=== PATIENT | male | born 1955 | race Hispanic/Latino ===

== ENCOUNTER 2020-07-29 15:11 | Inpatient (IN) | payer OTHER ==
[2020-07-30 00:04] VITALS: BMI 30.7
[2020-07-30] MEDS ORDERED: Nitroglycerin 0.4 MG TAB (25 Tab Bottle) SL PRN (02:37)
[2020-07-30] MEDS ORDERED: Atorvastatin Calcium 40 MG TAB PO SCH (02:45)
[2020-07-30] MEDS ORDERED: Acetaminophen 325 MG TAB PO PRN (02:48)
[2020-07-30] MEDS ORDERED: Ondansetron PF 4 MG/2 ML Vial IVP PRN (02:48)
[2020-07-30] MEDS ORDERED: Ondansetron ODT 4 MG TAB PO PRN (02:48)
[2020-07-30 05:15] LABS: Cardiac Risk 4.8 (Less than 4.5); Magnesium 2.2 mg/dL (1.6-2.6)
[2020-07-30 05:31] LABS: Troponin I 0.522 ng/mL (< 0.028)
[2020-07-30] MEDS ORDERED: Enoxaparin Sodium 80 MG/0.8 ML SYRINGE SC SCH (06:00)
[2020-07-30 08:01] LABS: Troponin I 0.499 ng/mL (< 0.028)
[2020-07-30] MEDS: Aspirin 325 MG TAB PO SCH (08:57)
[2020-07-30] MEDS ORDERED: Aspirin Chewable 81 MG TAB PO SCH (09:00)
[2020-07-30] MEDS ORDERED: Regadenoson 0.4 MG/5 ML SYRINGE ONE (11:28)
[2020-07-30] MEDS ORDERED: Communication Order-Pharmacy FS SCH (14:30)
[2020-07-30] MEDS ORDERED: Atorvastatin Calcium 20 MG TAB PO SCH (21:00)
[2020-07-30] MEDS ORDERED: Latanoprost 0.005% Ophth Soln 2.5 ml Bottle EA EYE SCH (21:00)
[2020-07-31 04:51] LABS: #Basophils 0.1 thou/uL (0.0-0.2); #Eosinphils 0.1 thou/uL (0.0-0.7); #Lymphocytes 2.7 thou/uL (1.20-3.40); #Monocytes 0.5 thou/uL (0.11-0.59); #Neutrophils 3.8 thou/uL (1.40-6.50); %Basophils 0.8 % (0.0-1.0); %Eosinophils 1.9 % (0.0-10.0); %Lymphocytes 37.4 % (21.0-51.0); %Monocytes 7.2 % (0.0-10.0); %Neutrophils 52.8 % (42.0-75.0); Hemoglobin 13.6 g/dL (14.0-18.0); Mean Corpuscular HGB CONC 32.8 g/dL (32.0-36.0); Mean Corpuscular Hemoglobin 29.7 pg (27.0-31.0); Mean Corpuscular Volume 90.7 fL (78.0-98.0); Mean Platelet Volume 8.5 fL (7.4-10.4); Platelet Count 183 thou/uL (130-400); RBC Distribution Width 11.8 % (11.5-14.5); Red Blood Cell (RBC) Count 4.58 mill/uL (4.70-6.10); White Blood Cell (WBC) Count 7.2 thou/uL (4.8-10.8)
[2020-07-31 05:09] LABS: Anion Gap 11 mmol/L (10-20); BUN (Urea Nitrogen) 17 mg/dL (8.4-25.7); Calc. Creatinine Clearance 102 mL/min (70-130); Calcium 8.6 mg/dL (7.8-10.44); Carbon Dioxide 28 mmol/L (23-31); Chloride 105 mmol/L (98-107); Glucose 99 mg/dL (80-115); Potassium 4.3 mmol/L (3.5-5.1); Sodium 140 mmol/L (136-145)
[2020-07-31] MEDS: Aspirin 325 MG TAB PO SCH (05:18)
[2020-07-31] MEDS ORDERED: Lidocaine 1% (PF) 30 ML VIAL ONE (06:34)
[2020-07-31] MEDS ORDERED: Verapamil 5 MG/2 ML VIAL ONE (06:34)
[2020-07-31] MEDS ORDERED: Nitroglycerin 100MG/250ML BOT 250 ML ONE (06:34)
[2020-07-31] MEDS ORDERED: Fentanyl 100 MCG/2 ML VIAL ONE (06:34)
[2020-07-31] MEDS ORDERED: Midazolam HCl 2 mg/2 ml Vial ONE (06:34)
[2020-07-31] MEDS ORDERED: Heparin 10,000 UNITS/ 10 ML VIAL ONE (06:41)
[2020-07-31] MEDS ORDERED: Clopidogrel Bisulfate 300 MG TAB ONE (08:25)
[2020-07-31] MEDS ORDERED: TICAGRELOR 90 MG TABLET ONE (08:26)
[2020-07-31] MEDS ORDERED: Aspirin Chewable 81 MG TAB PO SCH (09:00)
[2020-07-31] MEDS ORDERED: TICAGRELOR 90 MG TABLET PO SCH (09:00)
[2020-07-31] MEDS ORDERED: Iopamidol 370 76% 50 ML VIAL FS ONE (15:03)
[2020-07-31] MEDS ORDERED: Iopamidol 370 76% 100 ML VIAL ONE (15:03)
[2020-07-31 16:01] VITALS: BP 140/72; TEMP 97.9
[2020-07-31] MEDS ORDERED: Carvedilol 3.125 MG TAB PO SCH ×2 (17:00)
[2020-08-01] MEDS ORDERED: Aspirin Chewable 81 MG TAB PO SCH (09:00)
== END 2020-07-31 18:15 | disposition home or self-care (01) | DRG 247 ==
LOC: 2NO 15:11
PROVIDERS: ADMIT Hospitalist; ATTEND Internal Medicine
PROC: 027034Z Dilation of Coronary Artery, One Artery with Drug-eluting Intraluminal Device, Percutaneous Approach (ICD-10-PCS; principal; 2020-07-29)
PROC: 4A023N7 Measurement of Cardiac Sampling and Pressure, Left Heart, Percutaneous Approach (ICD-10-PCS; 2020-07-29)
PROC: B2111ZZ Fluoroscopy of Multiple Coronary Arteries using Low Osmolar Contrast (ICD-10-PCS; 2020-07-29)
DX: I21.4 Non-ST elevation (NSTEMI) myocardial infarction (principal); K21.9 Gastro-esophageal reflux disease without esophagitis; E78.5 Hyperlipidemia, unspecified; H40.9 Unspecified glaucoma; M19.90 Unspecified osteoarthritis, unspecified site; R00.1 Bradycardia, unspecified; E78.1 Pure hyperglyceridemia; E66.9 Obesity, unspecified; Z68.30 Body mass index [BMI] 30.0-30.9, adult; I08.1 Rheumatic disorders of both mitral and tricuspid valves; I25.10 Atherosclerotic heart disease of native coronary artery without angina pectoris; N18.2 Chronic kidney disease, stage 2 (mild); D53.9 Nutritional anemia, unspecified; Z90.49 Acquired absence of other specified parts of digestive tract; Z82.49 Family history of ischemic heart disease and other diseases of the circulatory system
CPT/HCPCS: 36415; 76942; 78452; 80048; 80061; 83690; 83735; 83880; 84443; 84484; 85025; 85347; 92928; 93005; 93010; 93017; 93306; 97139; 99152; 99153; A9500; C1874; C9600; J1644; J2001; J2250; J2785; J3010; Q9967

== ENCOUNTER 2020-08-04 04:31 | Observation (INO) | payer OTHER ==
[2020-08-04 04:56] LABS: #Eosinphils 0.2 thou/uL (0.0-0.7); #Lymphocytes 2.5 thou/uL (1.20-3.40); #Monocytes 0.6 thou/uL (0.11-0.59); #Neutrophils 6.5 thou/uL (1.40-6.50); %Basophils 0.5 % (0.0-1.0); %Eosinophils 1.8 % (0.0-10.0); %Lymphocytes 25.4 % (21.0-51.0); %Monocytes 6.3 % (0.0-10.0); %Neutrophils 66.1 % (42.0-75.0); Hemoglobin 13.9 g/dL (14.0-18.0); Mean Corpuscular HGB CONC 33.1 g/dL (32.0-36.0); Mean Corpuscular Hemoglobin 29.8 pg (27.0-31.0); Mean Corpuscular Volume 90.1 fL (78.0-98.0); Mean Platelet Volume 8.7 fL (7.4-10.4); Platelet Count 180 thou/uL (130-400); RBC Distribution Width 11.7 % (11.5-14.5); Red Blood Cell (RBC) Count 4.65 mill/uL (4.70-6.10); White Blood Cell (WBC) Count 9.9 thou/uL (4.8-10.8)
[2020-08-04 05:18] LABS: ALT (SGPT) 30 U/L (8-55); AST (SGOT) 28 U/L (5-34); Alkaline Phosphatase 67 U/L (40-110); Anion Gap 9 mmol/L (10-20); BUN (Urea Nitrogen) 20 mg/dL (8.4-25.7); Bilirubin, Total 0.7 mg/dL (0.2-1.2); Calc. Creatinine Clearance 0 mL/min (70-130); Calcium 9.2 mg/dL (7.8-10.44); Carbon Dioxide 27 mmol/L (23-31); Chloride 104 mmol/L (98-107); Globulin 2.8 g/dL (2.4-3.5); Glucose 100 mg/dL (80-115); Potassium 4.2 mmol/L (3.5-5.1); Protein, Total 6.8 g/dL (5.8-8.1); Sodium 136 mmol/L (136-145)
[2020-08-04 05:40] LABS: CKMB 1.6 ng/mL (0-6.6)
[2020-08-04 08:24] LABS: Troponin I 0.074 ng/mL (< 0.028)
[2020-08-04 10:37] VITALS: BMI 31.1
[2020-08-04] MEDS ORDERED: Nitroglycerin 0.4 MG TAB (25 Tab Bottle) SL PRN (10:39)
[2020-08-04] MEDS ORDERED: Aspirin Chewable 81 MG TAB PO SCH (10:45)
[2020-08-04] MEDS ORDERED: TICAGRELOR 90 MG TABLET PO SCH (10:45)
[2020-08-04 11:09] LABS: Troponin I 0.062 ng/mL (< 0.028)
[2020-08-04] MEDS: Carvedilol 3.125 MG TAB PO SCH (16:49)
[2020-08-04] MEDS ORDERED: Latanoprost 0.005% Ophth Soln 2.5 ml Bottle EA EYE SCH (21:00)
[2020-08-04] MEDS ORDERED: Atorvastatin Calcium 40 MG TAB PO SCH (21:00)
[2020-08-04] MEDS: Brimonidine Tartrate 0.2% Ophth Soln 5 ml Bottle EA EYE SCH (21:04)
[2020-08-04] MEDS: TICAGRELOR 90 MG TABLET PO SCH (21:05)
[2020-08-04] MEDS: Timolol 0.5% Ophth Soln 5 ml Bottle EA EYE SCH (21:08)
[2020-08-05] MEDS ORDERED: Enoxaparin Sodium 40 MG/0.4 ML SYRINGE SC SCH (09:00)
[2020-08-05] MEDS ORDERED: Aspirin Chewable 81 MG TAB PO SCH (09:00)
[2020-08-05] MEDS: Brimonidine Tartrate 0.2% Ophth Soln 5 ml Bottle EA EYE SCH (09:13)
[2020-08-05] MEDS: TICAGRELOR 90 MG TABLET PO SCH (09:13)
[2020-08-05] MEDS: Carvedilol 3.125 MG TAB PO SCH ×2 (09:13→17:16)
[2020-08-05] MEDS: Timolol 0.5% Ophth Soln 5 ml Bottle EA EYE SCH (09:16)
[2020-08-05 18:29] VITALS: BP 126/52; TEMP 98.2
== END 2020-08-05 18:25 | disposition home or self-care (01) ==
LOC: ERS 04:31 → ERHOLD 06:22 → 2NO 10:19
PROVIDERS: ADMIT Internal Medicine; ATTEND Internal Medicine
DX: R07.89 Other chest pain (principal); E78.5 Hyperlipidemia, unspecified; H40.9 Unspecified glaucoma; K21.9 Gastro-esophageal reflux disease without esophagitis; I25.2 Old myocardial infarction; M19.90 Unspecified osteoarthritis, unspecified site; I25.10 Atherosclerotic heart disease of native coronary artery without angina pectoris; E78.00 Pure hypercholesterolemia, unspecified; I08.1 Rheumatic disorders of both mitral and tricuspid valves; Z79.02 Long term (current) use of antithrombotics/antiplatelets; Z79.82 Long term (current) use of aspirin; Z79.899 Other long term (current) drug therapy; Z95.5 Presence of coronary angioplasty implant and graft
CPT/HCPCS: 36415; 71045; 80053; 82553; 84484; 85025; 85379; 93005; 93306; 96372; G0378; J1650

== ENCOUNTER 2021-01-13 14:42 | Observation (INO) | payer OTHER ==
[2021-01-13] MEDS ORDERED: Iopamidol-370 76% 500 ML 1 ML ONE (15:07)
[2021-01-13 15:36] LABS: #Eosinphils 0.1 thou/uL (0.0-0.7); #Lymphocytes 2.1 thou/uL (1.20-3.40); #Monocytes 0.7 thou/uL (0.11-0.59); %Basophils 0.1 % (0.0-1.0); %Eosinophils 1.4 % (0.0-10.0); %Lymphocytes 26.2 % (21.0-51.0); %Monocytes 8.8 % (0.0-10.0); %Neutrophils 63.5 % (42.0-75.0); Hemoglobin 14.4 g/dL (14.0-18.0); Mean Corpuscular HGB CONC 34.5 g/dL (32.0-36.0); Mean Platelet Volume 8.2 fL (7.4-10.4); Platelet Count 181 thou/uL (130-400); RBC Distribution Width 11.8 % (11.5-14.5); Red Blood Cell (RBC) Count 4.65 mill/uL (4.70-6.10); White Blood Cell (WBC) Count 7.9 thou/uL (4.8-10.8)
[2021-01-13 15:57] LABS: ALT (SGPT) 28 U/L (8-55); AST (SGOT) 28 U/L (5-34); Albumin 4.2 g/dL (3.4-4.8); Alkaline Phosphatase 70 U/L (40-110); Anion Gap 11 mmol/L (10-20); BUN (Urea Nitrogen) 26 mg/dL (8.4-25.7); Bilirubin, Total 0.7 mg/dL (0.2-1.2); Calc. Creatinine Clearance 0 mL/min (70-130); Calcium 9.4 mg/dL (7.8-10.44); Carbon Dioxide 26 mmol/L (23-31); Chloride 105 mmol/L (98-107); Globulin 2.9 g/dL (2.4-3.5); Glucose 95 mg/dL (80-115); Potassium 4.4 mmol/L (3.5-5.1); Protein, Total 7.1 g/dL (5.8-8.1); Sodium 138 mmol/L (136-145)
[2021-01-13] MEDS ORDERED: Aspirin Chewable 81 MG TAB ONE (17:15)
[2021-01-13 20:43] LABS: Troponin I 0.014 ng/mL (< 0.028)
[2021-01-13] MEDS ORDERED: Ondansetron ODT 4 MG TAB SL PRN (21:30)
[2021-01-13] MEDS ORDERED: Ondansetron PF 4 MG/2 ML Vial IVP PRN (21:30)
[2021-01-13] MEDS ORDERED: Senokot S 8.6-50 MG TAB PO PRN (22:19)
[2021-01-13] MEDS ORDERED: Bisacodyl 5 MG TAB PO PRN (22:19)
[2021-01-13] MEDS ORDERED: Acetaminophen 325 MG TAB PO PRN (22:19)
[2021-01-13] MEDS ORDERED: HYDROcodone/Acetaminophen 5/325 mg Tablet PO PRN (22:19)
[2021-01-13] MEDS ORDERED: Zolpidem Tartrate 5 MG TAB PO PRN (22:19)
[2021-01-13] MEDS ORDERED: HYDROcodone/Acetaminophen 7.5/325 mg Tablet PO PRN (22:19)
[2021-01-13] MEDS ORDERED: hydrALAZINE 20 MG/ML VIAL SLOW IVP PRN (22:28)
[2021-01-13] MEDS ORDERED: Enoxaparin Sodium 40 MG/0.4 ML SYRINGE SC SCH (22:30)
[2021-01-13] MEDS ORDERED: Nitroglycerin 0.4 MG TAB (25 Tab Bottle) SL PRN (22:39)
[2021-01-13] MEDS ORDERED: Famotidine/PF 20 mg/2ml Vial SLOW IVP SCH (22:45)
[2021-01-13] MEDS ORDERED: Heparin 5,000 UNITS/ML VIAL SC SCH (23:00)
[2021-01-13] MEDS ORDERED: Pantoprazole 40 MG VIAL IVP SCH (23:00)
[2021-01-13] MEDS ORDERED: Sodium Chloride 0.9% (PF) 10 ML VIAL FS PRN (23:00)
[2021-01-13 23:05] VITALS: BMI 31.5
[2021-01-13 23:29] LABS: Troponin I 0.015 ng/mL (< 0.028)
[2021-01-14 02:21] LABS: Troponin I Less than 0.010 ng/mL (< 0.028)
[2021-01-14 05:53] LABS: #Eosinphils 0.1 thou/uL (0.0-0.7); #Lymphocytes 1.9 thou/uL (1.20-3.40); #Monocytes 0.6 thou/uL (0.11-0.59); #Neutrophils 4.3 thou/uL (1.40-6.50); %Basophils 0.3 % (0.0-1.0); %Eosinophils 1.5 % (0.0-10.0); %Lymphocytes 27.6 % (21.0-51.0); %Monocytes 8.7 % (0.0-10.0); Hemoglobin 13.8 g/dL (14.0-18.0); Mean Corpuscular HGB CONC 33.7 g/dL (32.0-36.0); Mean Corpuscular Hemoglobin 30.6 pg (27.0-31.0); Mean Corpuscular Volume 90.8 fL (78.0-98.0); Mean Platelet Volume 8.4 fL (7.4-10.4); Platelet Count 171 thou/uL (130-400); RBC Distribution Width 11.9 % (11.5-14.5); Red Blood Cell (RBC) Count 4.51 mill/uL (4.70-6.10); White Blood Cell (WBC) Count 6.9 thou/uL (4.8-10.8)
[2021-01-14 06:18] LABS: Anion Gap 12 mmol/L (10-20); BUN (Urea Nitrogen) 20 mg/dL (8.4-25.7); Calc. Creatinine Clearance 107 mL/min (70-130); Calcium 8.7 mg/dL (7.8-10.44); Carbon Dioxide 23 mmol/L (23-31); Cardiac Risk 2.6 (Less than 4.5); Chloride 107 mmol/L (98-107); Cholesterol 77 mg/dl (< 200 Desired); Glucose 97 mg/dL (80-115); HDL Cholesterol 30 mg/dL (>60 Neg Risk); LDL Cholesterol, Calculated 25 mg/dL; Potassium 4.1 mmol/L (3.5-5.1); Sodium 138 mmol/L (136-145); Triglycerides 109 mg/dL (Less than 150)
[2021-01-14] MEDS ORDERED: Famotidine/PF 20 mg/2ml Vial SLOW IVP SCH (09:00)
[2021-01-14] MEDS: Aspirin Chewable 81 MG TAB PO SCH (09:32)
[2021-01-14] MEDS: Carvedilol 3.125 MG TAB PO SCH ×2 (09:32→15:53)
[2021-01-14] MEDS: Pantoprazole 40 MG VIAL IVP SCH ×2 (09:32→21:24)
[2021-01-14] MEDS: Heparin 5,000 UNITS/ML VIAL SC SCH ×3 (09:32→21:25)
[2021-01-14 12:12] LABS: SARS-CoV-2 PCR by NAA Not Detected (NotDetected)
[2021-01-14] MEDS: Timolol 0.5% Ophth Soln 5 ml Bottle EA EYE SCH ×2 (15:54→21:24)
[2021-01-14] MEDS: Brimonidine Tartrate 0.2% Ophth Soln 5 ml Bottle EA EYE SCH ×2 (15:54→21:22)
[2021-01-14] MEDS ORDERED: Latanoprost 0.005% Ophth Soln 2.5 ml Bottle EA EYE SCH (21:00)
[2021-01-14] MEDS ORDERED: Enoxaparin Sodium 40 MG/0.4 ML SYRINGE SC SCH (21:00)
[2021-01-14] MEDS ORDERED: Atorvastatin Calcium 40 MG TAB PO SCH (21:00)
[2021-01-15] MEDS: Heparin 5,000 UNITS/ML VIAL SC SCH (11:04)
[2021-01-15] MEDS: Timolol 0.5% Ophth Soln 5 ml Bottle EA EYE SCH (11:07)
[2021-01-15] MEDS: Carvedilol 3.125 MG TAB PO SCH (11:11)
[2021-01-15] MEDS: Brimonidine Tartrate 0.2% Ophth Soln 5 ml Bottle EA EYE SCH ×2 (11:11→12:43)
[2021-01-15] MEDS: Pantoprazole 40 MG VIAL IVP SCH (11:11)
[2021-01-15] MEDS: Aspirin Chewable 81 MG TAB PO SCH (11:11)
[2021-01-15 11:34] VITALS: BP 129/73; TEMP 97.4
[2021-01-15] MEDS ORDERED: Regadenoson 0.4 MG/5 ML SYRINGE ONE (12:00)
== END 2021-01-15 13:00 | disposition home or self-care (01) ==
LOC: ERS 14:42 → 2NO 19:45
PROVIDERS: ADMIT Family Medicine; ATTEND Family Medicine
DX: R07.89 Other chest pain (principal); I10 Essential (primary) hypertension; E78.5 Hyperlipidemia, unspecified; I25.10 Atherosclerotic heart disease of native coronary artery without angina pectoris; I25.2 Old myocardial infarction; K21.9 Gastro-esophageal reflux disease without esophagitis; H40.9 Unspecified glaucoma; H26.9 Unspecified cataract; R79.89 Other specified abnormal findings of blood chemistry; Z20.822 Contact with and (suspected) exposure to COVID-19; Z86.16 Personal history of COVID-19; Z95.5 Presence of coronary angioplasty implant and graft; Z79.02 Long term (current) use of antithrombotics/antiplatelets; Z79.82 Long term (current) use of aspirin; Z79.1 Long term (current) use of non-steroidal anti-inflammatories (NSAID); Z79.899 Other long term (current) drug therapy
CPT/HCPCS: 36415; 71045; 71275; 78452; 80048; 80053; 80061; 84484; 85025; 85379; 93005; 93010; 93017; A9500; C9113; J1644; J2785; Q9967; S0028; U0003; U0005

== ENCOUNTER 2021-09-02 13:16 | Outpatient (CLI) | payer BC | END 2021-09-02 13:17 | disposition home or self-care (01) | LOC: MRI 13:16 | PROVIDERS: ATTEND Nurse Practitioner Family | DX: M54.2 Cervicalgia (principal); M47.812 Spondylosis without myelopathy or radiculopathy, cervical region; M48.02 Spinal stenosis, cervical region; M50.31 Other cervical disc degeneration, high cervical region; M25.78 Osteophyte, vertebrae; M50.223 Other cervical disc displacement at C6-C7 level | CPT/HCPCS: 72141 ==

== ENCOUNTER 2022-08-16 10:41 | Outpatient (CLI) | payer BC | END 2022-08-16 10:42 | disposition home or self-care (01) | LOC: MRI 10:41 | PROVIDERS: ATTEND Nurse Practitioner Family | DX: M75.112 Incomplete rotator cuff tear or rupture of left shoulder, not specified as traumatic (principal); M19.012 Primary osteoarthritis, left shoulder ==

== ENCOUNTER 2022-10-27 18:00 | Outpatient (CLI) | payer BC | END 2022-10-27 18:01 | disposition home or self-care (01) | LOC: SLEEPLAB 18:00 | PROVIDERS: ATTEND Nurse Practitioner Family | DX: G47.33 Obstructive sleep apnea (adult) (pediatric) (principal); R53.83 Other fatigue; G47.61 Periodic limb movement disorder; G31.84 Mild cognitive impairment of uncertain or unknown etiology; F32.A Depression, unspecified; E66.9 Obesity, unspecified; R06.83 Snoring; I25.10 Atherosclerotic heart disease of native coronary artery without angina pectoris; I10 Essential (primary) hypertension; R35.1 Nocturia; G47.00 Insomnia, unspecified; I25.2 Old myocardial infarction; Z68.37 Body mass index [BMI] 37.0-37.9, adult | CPT/HCPCS: 95800 ==